=== PATIENT | male | born 1950 | race Two or more races ===

== ENCOUNTER → 2024-04-21 | Outpatient (CLI) | payer MEDICARE, MEDICAID, SELFPAY ==
--- NOTE | 2024-04-21 08:53 | XR_ITS ---
Examination: Abdomen AP single view Technique: AP portable supine abdomen, single view Exam date and time: April 21, 2024 0907 hours INDICATIONS: Recurrent urinary tract infections FINDINGS: Moderate air and stool throughout the colon No renal or ureteral calculi Prominent osteopenia, moderate bilateral hip osteoarthritis IMPRESSION: No renal or ureteral calculi
[2024-04-21 10:51] LABS: Prostate Specific Antigen 5.58 ng/mL (0-4.00)
== END | disposition home or self-care (01) ==
PROVIDERS: Referring Provider Surgery; Visit Provider Radiology Diagnostic Radiology
DX: N39.0 Urinary tract infection, site not specified (principal); N40.1 Benign prostatic hyperplasia with lower urinary tract symptoms
CPT/HCPCS: 36415; 74018; 84153

== ENCOUNTER → 2024-05-25 | Outpatient (CLI) | payer MEDICARE, MEDICAID, SELFPAY ==
--- NOTE | 2024-05-25 08:30 | XR_ITS ---
Examination: Retroperitoneal ultrasound, complete Technique: Multiple high resolution grayscale images of the retroperitoneum obtained, including kidneys and bladder. Exam date and time:May 25, 2024 0858 hours INDICATIONS: Flank pain urinary tract infections several months. FINDINGS: Right kidney 12.3 x 5.3 x 4.6 cm cortex 2.0 cm 9 mm upper pole cyst Left kidney 11.6 x 6.2 x 5.1 cm cortex 1.9 cm Midpole cyst 14 mm Mild left perinephric stranding Mild bilateral renal parenchymal scar formation No bladder mass or bladder calculi Bladder prevoid volume 186 cc postvoid volume 16 cc Significant prostatomegaly 5.5 x 4.4 x 5.8 cm volume 73.5 cc prostate cyst 8 mm, no solid nodules IMPRESSION: Mild left perinephric stranding Mild bilateral renal parenchymal scar formation Significant prostatomegaly no prostate nodules
== END | disposition home or self-care (01) ==
PROVIDERS: Referring Provider Surgery; Visit Provider Surgery
DX: N28.89 Other specified disorders of kidney and ureter (principal)
CPT/HCPCS: 76770

== ENCOUNTER 2024-06-06 07:45 | Day surgery (SDC) | payer MEDICARE, MEDICAID, SELFPAY ==
--- NOTE | 2024-06-05 08:27 | EKG_ITS ---
[facility] Test Date: 2024-06-05 Pat Name: MALINDA MEI Department: Room: - Gender: Male Senior Nurse Manager: RTSJC : 1950 Requested By: Ramsey Christianson Order Number: [id number] Reading MD: Ramsey Christianson Measurements Intervals [place] Rate: 68 P: 40 WV: 155 QRS: 30 QRSD: 97 T: 89 QT: 370 QTc: 394 Interpretive Statements SINUS RHYTHM PROBABLE INFERIOR MYOCARDIAL INFARCTION , PROBABLY OLD No previous ECG available for comparison /store/[email or web address]/[id number]/ecg/[id number].pdf
[2024-06-05 09:08] LABS: Collection Type, Urine Clean Catch
[2024-06-05 11:36] LABS: Basophils % (Auto) 1 % (0-2.5); Eosinophils # (Auto) 0.1 Thou/mm3 (0.0-0.5); Eosinophils % (Auto) 2 % (0-10); Hematocrit 40.6 % (41.0-53.0); Hemoglobin 13.4 g/dL (13.5-16.0); Immature Granulocytes % (Auto) 0 % (0-0); Immature Granulocytes Auto 0.01 Thou/mm3 (0.00-0.00); Lymphocytes # (Auto) 0.9 Thou/mm3 (1.0-4.8); Lymphocytes % (Auto) 14 % (10-50); Mean Corpuscular Hemoglobin 28.2 pg (25.0-35.0); Mean Corpuscular Volume 86 fL (80-100); Monocytes # (Auto) 0.6 Thou/mm3 (0.0-0.8); Monocytes % (Auto) 9 % (0-12); Neutrophils # (Auto) 4.7 Thou/mm3 (1.8-7.7); Neutrophils % (Auto) 74 % (37-80); Nucleated Red Blood Cell % 0 /100 WBC (0); Platelet Count 209 Thou/mm3 (140-440); RDW Standard Deviation 44.2 fL (35.1-43.9); Red Blood Count 4.75 Miln/mm3 (4.50-5.90); White Blood Count 6.4 Thou/mm3 (3.8-10.6)
[2024-06-05 11:52] LABS: Alanine Aminotransferase 38 U/L (10-49); Albumin, Serum 4.4 gm/dL (3.4-4.8); Albumin/Globulin Ratio 1.7 (1.2-2.2); Alkaline Phosphatase 142 U/L (46-116); Anion Gap 9 (7-16); Aspartate Amino Transferase 30 U/L (0-34); BUN/Creatinine Ratio 18 Ratio (12-20); Bilirubin,Total 0.7 mg/dL (0.3-1.2); Blood Urea Nitrogen 21 mg/dL (9-23); Calcium 9.3 mg/dL (8.3-10.6); Calcium (Corrected) 9.3 mg/dL (8.5-10.1); Carbon Dioxide 28.7 mMol/L (20.0-31.0); Chloride 106 mMol/L (98-107); Creatinine (Component) 1.2 mg/dL (0.6-1.3); Globulin 2.6 gm/dL (2.3-3.5); Glucose 154 mg/dL (74-106); Osmolality,Calculated 292 (275-295); Potassium 3.9 mMol/L (3.4-5.1); Sodium 144 mMol/L (136-145); eGFR > 60 See Note
[2024-06-05 12:14] LABS: Bilirubin,Urine Negative (Negative); Blood,Urine Negative (Negative); Clarity,Urine Clear (Clear/Hazy); Color,Urine Lt-Yellow (Lt Yel-Yel); Glucose, Urine 4+ (Negative); Ketones,Urine Negative (Negative); Leukocyte Esterase,Urine Positive (Negative); Nitrite,Urine Negative (Negative); PH,Urine 6.5 (5.0-7.0); Protein,Urine Trace (Neg - Trace); RBC,Urine 5 /hpf (0-3); Specific Gravity,Urine 1.028 (1.001-1.035); Squamous Epithelial Cell,Urine < 1 /hpf (0-5); Urobilinogen,Urine Negative mg/dL (0.0-1.0); WBC,Urine 4 /hpf (0-5)
[2024-06-05 13:04] VITALS: BMI 34.1
--- NOTE | 2024-06-05 13:38 | ESHP_ITS ---
RE: VIJAY MEI : 1950 DATE OF ADMISSION: 06/06/2024 HISTORY OF PRESENT ILLNESS: Vijay Mei is a 74-year-old gentleman who was referred to me with a history of nocturia x5 and elevated PSA of 5.58. The patient does not have any history of recent UTI. PAST SURGICAL HISTORY: None. PAST MEDICAL HISTORY: He has a history of diabetes mellitus and history of hypertension. HOME MEDICATIONS: He takes ;1. Hydralazine. 2. Tamsulosin. 3. Metoprolol. 4. Prozac. 5. Clonidine. 6. Motrin. 7. Thyroid medication. 8. Norvasc. 10. Zyprexa. 11. Clonidine. 12. Loratadine. 13. Statin medication, valsartan. 14. 15. Medication for diabetes mellitus. ALLERGIES: HE IS ALLERGIC TO FISH. PHYSICAL EXAMINATION: HEENT: Normal. NECK: Supple. LUNGS: Clear. CARDIOVASCULAR: Heart sounds are normal. ABDOMEN: Soft without any organomegaly. No guarding. No rigidity. EXTREMITIES: Normal. GENITOURINARY: Phallus is normal. Testis are down in scrotum. RECTAL: Revealed moderately enlarged prostate with some mild firmness in the prostate on both sides. IMPRESSION: 1. Prostatism. 2. Prostatic obstruction. 3. Elevated PSA of 5.58. PLAN: Cystoscopy and transrectal prostatic ultrasound with ultrasound-guided prostatic needle biopsy. Planned procedure, risks and complications have been discussed with the patient. The patient has understood them and agreed to proceed. DT: 11:20:05 TT: 13:37:00 Ref: [id number] - TID: [id number]
--- NOTE | 2024-06-05 14:00 | SUR.PREOP ---
Instructions given to Ania wound care technician, pt to be NPO after MN, Pt time was changed, Ania made aware to bring pt at 0800 tomorrow. Pt lives in senior care [facility] in [place] [phone]
[2024-06-06] VITALS (9 sets, daily range): BP systolic 132–150; BP diastolic 75–85; PULSE 62–74; RESP 12–20; TEMP 36.6–36.9; O2SAT 96–99; BMI 33.9
--- NOTE | 2024-06-06 10:28 | CHAP ---
Prayed with patient before procedure.
--- NOTE | 2024-06-06 11:15 | SUR.PHASEI ---
pt arrived to pacu via gurney drowsy but arouses to voice, breathing unlabored, report from Natalie SORTO and Dr Sanchez
--- NOTE | 2024-06-06 12:10 | SUR.PHASEII ---
pt up to bathroom, pt able to ambulate with steady gait
--- NOTE | 2024-06-06 12:25 | SUR.PHASEII ---
pt returned to [facility] and connected to vitals monitor
--- NOTE | 2024-06-06 12:33 | SUR.PHASEII ---
report to Ruma SORTO
--- NOTE | 2024-06-06 12:45 | SUR.PHASEII ---
pt discharged with all belongings via wheelchair. pt alert and oriented. denies pain and nausea. fc draining to leg bag by gravity. discharge instructions gone over with patient and care provider. both verbalize understanding. signed by care provider.
--- NOTE | 2024-06-06 21:24 | ESOP_ITS ---
RE: MALINDA MEI : 1950 DATE OF OPERATION: 06/06/2024 PREOPERATIVE DIAGNOSES: Prostatism, prostatic obstruction, elevated PSA of 5.58. POSTOPERATIVE DIAGNOSES: Prostatism, prostatic obstruction, elevated PSA of 5.58. PROCEDURES PERFORMED: Cystoscopy, urethral dilatation, transrectal prostatic ultrasound with ultrasound-guided prostatic needle biopsy, insertion of Solorzano catheter to the leg bag. ANESTHESIA: Monitored anesthesia by Dr. Sanchez. INDICATION: The patient is a 74-year-old male with prostatism with nocturia 5 times with slowing urinary stream. He has an elevated PSA of 5.58. He is on tamsulosin. Rectally, he has a moderately large smooth prostate with some firmness in the prostatic lobes. He was now scheduled to have cystoscopy, transrectal prostatic ultrasound with ultrasound-guided prostatic needle biopsy. Planned procedure, risks and complications have been discussed with the patient. The patient understood them and agreed to proceed. DESCRIPTION OF PROCEDURE: After the patient was brought to the operating table and the adequate monitored anesthesia by Dr. Orozco and dorsal lithotomy position, parts were prepped and draped in the usual fashion. Cystoscopy was then carried out. The patient was found to have a tight phimosis. Scope was introduced into the urethra. The urethra is open. There is a moderately large bilobed prostate. Residual urine 5 oz yellow and clear and was sent for culture and sensitivity examination. There are no intravesical stones or tumors. The bladder mucosa is moderately . Scope was withdrawn. The patient had a vascular prostate. The patient was then turned in left lateral position. Transrectal prostatic ultrasound was carried out. Biopsies were obtained from both lobes using ultrasound guidance. Because the patient has a large prostate and it is somewhat vascular, a 20- [place] Citizen Solorzano catheter was inserted at the end of the procedure into the bladder and was connected to a leg bag. The patient tolerated the entire procedure well and left the room in good condition. DT: 11:26:51 TT: 15:52:00 Ref: [id number] - TID: [id number]
== END 2024-06-06 13:00 | disposition home or self-care (01) ==
PROVIDERS: Anesthesiology; PCP Family Medicine; Referring Provider Surgery; Visit Provider Surgery
PROC: 0TJB8ZZ Inspection of Bladder, Via Natural or Artificial Opening Endoscopic (ICD-10-PCS; CPT 52000; principal; 2024-06-06 10:00)
DX: N40.1 Benign prostatic hyperplasia with lower urinary tract symptoms (principal); R97.20 Elevated prostate specific antigen [PSA]; E11.9 Type 2 diabetes mellitus without complications; I10 Essential (primary) hypertension; Z01.810 Encounter for preprocedural cardiovascular examination; N41.1 Chronic prostatitis
CPT/HCPCS: 52281; 55700; 36415; 80053; 81001; 85025; 93005; A4217; A4649; J0694; J2250; J2704; J3010